=== PATIENT | female | born 2000 | race African-American/Black ===

== ENCOUNTER 2023-06-10 06:40 | Emergency (ER) | payer MEDICAID, OTHER ==
[~2023-06-10] VITALS: Ht 162.6 cm; Wt 51.3 kg
[2023-06-10 08:00] VITALS: BP 129/86; TEMP 98.1
[2023-06-10 10:39] VITALS: O2SAT 100
== END 2023-06-10 10:39 | disposition home or self-care (01) ==
LOC: ER 06:53
DX: R05.9 Cough, unspecified (principal); Z20.822 Contact with and (suspected) exposure to COVID-19
CPT/HCPCS: 99283; 87426; 87804 ×2; C9803